=== PATIENT | male | born 1970 | race Caucasian/White ===

== ENCOUNTER 2016-09-09 10:49 | Emergency (ER) | payer OTHER ==
[~2016-09-09] VITALS: Ht 177.8 cm; Wt 69.7 kg
[~2016-09-09 10:49] MED LIST: ADVIL200 M2 PO; MOTRIN IB200 MG PO; TYLENOL EXTRA500 MG PO
[2016-09-09] MEDS ORDERED: CITALOPRAM HBR20 MG PO (11:47)
[2016-09-09] MEDS ORDERED: BUSPAR15 MG PO (11:48)
[2016-09-09] MEDS ORDERED: LORAZEPAM1 MG PO (11:48)
[2016-09-09] MEDS ORDERED: SUMATRIPTAN SUC50 MG PO (11:48)
[2016-09-09] MEDS ORDERED: FIORICET 50-301 EACH PO (12:28)
[2016-09-09 12:36] VITALS: BP 168/104
== END 2016-09-09 12:38 | disposition home or self-care (01) ==
LOC: EME 10:49
DX: R51 Headache (principal); M54.2 Cervicalgia; R11.0 Nausea; R42 Dizziness and giddiness; H53.149 Visual discomfort, unspecified; F17.200 Nicotine dependence, unspecified, uncomplicated
CPT/HCPCS: 99281; 99284; J1100; J1200; J1885

== ENCOUNTER 2016-09-09 20:24 | Emergency (ER) | payer OTHER ==
[~2016-09-09] VITALS: Ht 177.8 cm; Wt 71.9 kg
[~2016-09-09 20:24] MED LIST changes: +BUSPAR15 MG PO; +CITALOPRAM HBR20 MG PO; +FIORICET 50-301 EACH PO; +LORAZEPAM1 MG PO; +SUMATRIPTAN SUC50 MG PO
[2016-09-09 20:40] VITALS: BP 155/95
== END 2016-09-09 23:54 | disposition left against medical advice (07) ==
LOC: EME 20:24
DX: R51 Headache (principal); Z53.21 Procedure and treatment not carried out due to patient leaving prior to being seen by health care provider